=== PATIENT | female | born 1970 | race African-American/Black ===

== ENCOUNTER 2017-03-31 20:52 | Emergency (ER) | payer OTHER, SELFPAY ==
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
== END 2017-03-31 22:45 | disposition home or self-care (01) ==
LOC: ERS 20:52
DX: R07.89 Other chest pain (principal); I25.2 Old myocardial infarction; E78.5 Hyperlipidemia, unspecified; I10 Essential (primary) hypertension; F32.9 Major depressive disorder, single episode, unspecified; Z79.899 Other long term (current) drug therapy; W22.11XA Striking against or struck by driver side automobile airbag, initial encounter; V89.2XXA Person injured in unspecified motor-vehicle accident, traffic, initial encounter
CPT/HCPCS: 71020; 93005